=== PATIENT | female | born 2000 | race Caucasian/White ===

== ENCOUNTER 2024-02-11 23:28 | Day surgery (SDC) | payer OTHER ==
[2024-02-12] MEDS ORDERED: ACETAMINOPHEN INJECTION 100 ML IVPB ONE ×2 (00:09→05:40)
[2024-02-12] MEDS ORDERED: MAG HYDROX/AL HYDROX/SIMETH 30 ML UNIT-DOSE CUP ONE (00:09)
[2024-02-12] MEDS ORDERED: FAMOTIDINE 20 MG/50 ML IVPB 20 MG/50 ML MG IVPB ONE (00:10)
[2024-02-12] MEDS ORDERED: ONDANSETRON 4 MG/2 ML VIAL ONE ×4 (00:10→11:12)
[2024-02-12 00:11] LABS: BASO % 0.6 % (0-2.0); EOS % 3.3 % (0-4.5); HEMATOCRIT 39.4 % (32.4-45.2); HEMOGLOBIN 13.4 GM/dL (10.7-15.3); LYMPH % 25.1 % (8-40); MCH 30.8 pg (25.7-33.7); MCHC 34.1 g/dl (32.0-36.0); MEAN CELL VOLUME 90.2 fl (80-96); MEAN PLT VOLUME 8.4 fl (7.5-11.1); MONO % 6.3 % (3.8-10.2); NEUT % 64.7 % (42.8-82.8); PLATELET COUNT 227 10^3/uL (134-434); RBC 4.37 M/mm3 (3.60-5.2); RDW 12.2 % (11.6-15.6); WHITE BLOOD COUNT 14.2 K/mm3 (4.0-10.0)
[2024-02-12] MEDS: MAG HYDROX/AL HYDROX/SIMETH 30 ML UNIT-DOSE CUP PO ONE (00:14)
[2024-02-12] MEDS: ACETAMINOPHEN 1000 MG/100 ML BAG IVPB ONE (00:26)
[2024-02-12] MEDS: ONDANSETRON 4 MG/2 ML VIAL IVPUSH ONE (00:26)
[2024-02-12 00:30] LABS: POTASSIUM 4.2 mmol/L (3.5-5.1)
[2024-02-12] MEDS: SODIUM CHLORIDE 1,000 ML IV STA (00:30)
[2024-02-12 00:31] LABS: CALCIUM 9.3 mg/dL (8.5-10.1)
[2024-02-12] MEDS: FAMOTIDINE 20 MG/50 ML IVPB 20 MG/50 ML MG IVPB ONE (00:31)
[2024-02-12 00:32] LABS: ALBUMIN 4.1 g/dl (3.4-5.0); BLOOD UREA NITROGEN 28.4 mg/dL (7-18); MAGNESIUM 2.2 mg/dL (1.8-2.4)
[2024-02-12 00:35] LABS: CREATININE 0.7 mg/dL (0.55-1.3)
[2024-02-12 00:36] LABS: TOT PROT 7.4 g/dl (6.4-8.2)
[2024-02-12 00:38] LABS: BILIRUBIN,TOTAL 0.6 mg/dL (0.2-1)
[2024-02-12 00:39] LABS: INR 1.03 (0.83-1.09); PROTHROMBIN TIME (PATIENT) 11.8 SEC (9.7-13.0)
[2024-02-12 00:42] LABS: ACTIVATED PTT 30.6 SECONDS (25.2-36.5)
[2024-02-12] MEDS: CEFOXITIN SODIUM 2 GM in DEXTROSE 5%-WATER - 100 ML IVPB ONE (04:05)
[2024-02-12] MEDS ORDERED: morphine SULFATE 4 MG/ML VIAL ONE (04:08)
[2024-02-12] MEDS: CEFOXITIN SODIUM 2 GM in DEXTROSE 5%-WATER 100 ML IVPB ONE (04:16)
[2024-02-12] MEDS: morphine CARPU-JECT 4 MG/1 ML DISP.SYRIN IVPUSH ONE (04:16)
[2024-02-12] MEDS: DEXTROSE 5%-0.45% SALINE 1,000 ML IV SCH (05:04)
[2024-02-12] MEDS: ACETAMINOPHEN 1000 MG/100 ML BAG IVPB PRN (05:50)
[2024-02-12] MEDS: ONDANSETRON 4 MG/2 ML VIAL IVPUSH PRN (06:11)
[2024-02-12 06:17] LABS: BASO % 0.3 % (0-2.0); EOS % 0.8 % (0-4.5); HEMATOCRIT 36.9 % (32.4-45.2); HEMOGLOBIN 12.4 GM/dL (10.7-15.3); MCH 30.8 pg (25.7-33.7); MCHC 33.6 g/dl (32.0-36.0); MEAN CELL VOLUME 91.7 fl (80-96); MEAN PLT VOLUME 8.8 fl (7.5-11.1); NEUT % 79.9 % (42.8-82.8); PLATELET COUNT 178 10^3/uL (134-434); RBC 4.02 M/mm3 (3.60-5.2); RDW 12.1 % (11.6-15.6); WHITE BLOOD COUNT 14.6 K/mm3 (4.0-10.0)
[2024-02-12 06:36] LABS: POTASSIUM 3.9 mmol/L (3.5-5.1)
[2024-02-12 06:37] LABS: CALCIUM 8.4 mg/dL (8.5-10.1)
[2024-02-12 06:38] LABS: BLOOD UREA NITROGEN 20.4 mg/dL (7-18)
[2024-02-12 06:41] LABS: CREATININE 0.8 mg/dL (0.55-1.3)
[2024-02-12] MEDS ORDERED: BUPIVACAINE HCL/PF 0.5% (5MG/ML) 10 ML VIAL ONE (09:47)
[2024-02-12] MEDS ORDERED: DEXAMETHASONE SOD PHOSPHATE 4 MG/1 ML VIAL ONE ×2 (09:54→11:12)
[2024-02-12] MEDS ORDERED: LIDOCAINE HCL/PF 2% SDV 5ML VIAL ONE (09:54)
[2024-02-12] MEDS ORDERED: FENTANYL CITRATE/PF 50 MCG/ML VIAL ONE (09:54)
[2024-02-12] MEDS ORDERED: PROPOFOL 20 ML ONE (09:54)
[2024-02-12] MEDS ORDERED: MIDAZOLAM HCL 2 MG/2 ML SINGLE DOSE VIAL ONE (09:54)
[2024-02-12] MEDS: BUPIVACAINE HCL/PF 0.5% (5 MG/ML) 30 ML VIAL IJ ONE (10:51)
[2024-02-12] MEDS ORDERED: KETOROLAC TROMETHAMINE 30 MG/1 ML VIAL ONE (11:12)
[2024-02-12] MEDS ORDERED: NEOSTIGMINE METHYLSULFATE 0.5 MG/1 ML - 10 ML MDV ONE (11:12)
[2024-02-12] MEDS ORDERED: GLYCOPYRROLATE 0.2 MG/1 ML VIAL ONE (11:12)
[2024-02-12 11:41] VITALS: BMI 20.3
[2024-02-12] MEDS ORDERED: ONDANSETRON 4 MG/2 ML VIAL IVPUSH PRN (12:01)
[2024-02-12] MEDS ORDERED: ACETAMINOPHEN 1000 MG/100 ML BAG IVPB PRN (12:01)
[2024-02-12] MEDS: CEFTRIAXONE 1 GM in DEXTROSE 5%-WATER - 50 ML IVPB ONE (15:48)
[2024-02-12] MEDS: LACTATED RINGERS SOLUTION 1,000 ML IV SCH (15:49)
[2024-02-12 15:50] LABS: PH,URINE 7.5 (5.0-8.0); URINE APPEARANCE CLEAR; URINE BILIRUBIN NEGATIVE (NEGATIVE); URINE COLOR YELLOW; URINE GLUCOSE (UA) NEGATIVE (NEGATIVE); URINE KETONE 1+ (NEGATIVE); URINE LEUK ESTERASE NEGATIVE (NEGATIVE); URINE NITRITE NEGATIVE (NEGATIVE); URINE PROTEIN NEGATIVE (NEGATIVE); URINE UROBILINOGEN 0.2 mg/dL (0.2-1.0)
[2024-02-12 15:56] LABS: EPI CELLS 6.2 /uL (0-25.1); HYALINE CASTS 0.43 /uL (0-3.1); URINE BACTERIA 97.6 /uL (0-1359); URINE RBC 33.4 /uL (0-23.9); URINE WBC 3.7 /uL (0-25.8)
[2024-02-12] MEDS: ACETAMINOPHEN 325 MG TABLET (FP) PO PRN (21:40)
[2024-02-12] MEDS ORDERED: BENZOCAINE/MENTH/CETYLPYRD CL 1 EACH LOZENGE MM PRN (21:53)
[2024-02-13 07:22] VITALS: BP 105/60; PULSE 80; RESP 18; TEMP 98.2
[2024-02-13 08:16] LABS: BASO % 0.5 % (0-2.0); EOS % 1.5 % (0-4.5); HEMATOCRIT 30.8 % (32.4-45.2); HEMOGLOBIN 10.7 GM/dL (10.7-15.3); LYMPH % 24.4 % (8-40); MCH 31.5 pg (25.7-33.7); MCHC 34.7 g/dl (32.0-36.0); MEAN CELL VOLUME 90.5 fl (80-96); MEAN PLT VOLUME 8.6 fl (7.5-11.1); MONO % 5.9 % (3.8-10.2); NEUT % 67.7 % (42.8-82.8); PLATELET COUNT 159 10^3/uL (134-434); RDW 12.4 % (11.6-15.6); WHITE BLOOD COUNT 9.9 K/mm3 (4.0-10.0)
[2024-02-13 08:39] LABS: POTASSIUM 4.2 mmol/L (3.5-5.1)
[2024-02-13 08:40] LABS: BLOOD UREA NITROGEN 8.2 mg/dL (7-18); CALCIUM 8.4 mg/dL (8.5-10.1)
[2024-02-13 08:46] LABS: CREATININE 0.5 mg/dL (0.55-1.3)
[2024-02-13 08:47] LABS: TOT PROT 5.6 g/dl (6.4-8.2)
[2024-02-13 08:48] LABS: BILIRUBIN,TOTAL 0.6 mg/dL (0.2-1)
== END 2024-02-13 02:00 | disposition home or self-care (01) ==
LOC: JER 23:28 → JASUSAT 02-12 03:50 → JERBED 02-12 03:50 → UNDOADMIN 02-12 03:50 → JERBED 02-12 08:34 → J8W 02-12 08:34 → JASUSAT 02-13 02:00
PROVIDERS: ATTEND Internal Medicine
PROC: 0DTJ4ZZ Resection of Appendix, Percutaneous Endoscopic Approach (ICD-10-PCS; principal; 2024-02-12 10:00)
DX: K35.80 Unspecified acute appendicitis (principal)
CPT/HCPCS: 36415; 74177-TC; 80048; 80053; 81003; 83735; 84703; 85025; 85610; 85730; 86850; 86900; 86901; 87086; 88304-TC; 93005; 93010; 94010; 94760; 99285-25; J0131; Q9967